=== PATIENT | male | born 1975 | race Caucasian/White ===

== ENCOUNTER → 2018-02-15 | Outpatient (CLI) | payer OTHER ==
[~2018-02-15] MED LIST: GABA-843 PO; MULT1TAB10 PO; NAPR-885 PO
--- NOTE | 2018-02-16 05:23 | REP ---
Clinical: Left shoulder pain . Technique: Internal rotation, external rotation, and Y view. Findings: No acute fracture or dislocation. The acromioclavicular and glenohumeral joints are intact. No periarticular calcifications or degenerative changes are appreciated. Sub acromial space is normal. Surrounding soft tissues are unremarkable. Impression: Normal left shoulder radiographs. Electronically Signed by Julio Cesar Jane MD 02/16/2018 05:16 A
== END ==
LOC: M ADAMS 08:36
PROVIDERS: ATTEND Physician Assistant Medical
DX: M25.512 Pain in left shoulder (principal)

== ENCOUNTER → 2018-04-25 | Outpatient (REF) | payer OTHER ==
[2018-04-25 18:51] LABS: APPEARANCE, URINE CLEAR (CLEAR); BACTERIA, URINE AUTO NEGATIVE (NEGATIVE); BILIRUBIN, URINE AUTO NEGATIVE (NEGATIVE); BLOOD, URINE BLOOD NEGATIVE (NEGATIVE); COLOR, URINE YELLOW (YELLOW); GLUCOSE, URINE (UA) AUTO NEGATIVE (NEGATIVE); KETONE, URINE AUTO NEGATIVE (NEGATIVE); LEUKOCYTE ESTERASE, URINE AUTO NEGATIVE (NEGATIVE); MUCUS, URINE SMALL (NEGATIVE); NITRITE, URINE AUTO NEGATIVE (NEGATIVE); PROTEIN, URINE AUTO NEGATIVE (NEGATIVE); RBC, URINE AUTO 0 /HPF (0-3); SPECIFIC GRAVITY URINE AUTO 1.023 (1.002-1.035); SQUAMOUS EPITHELIAL CELL UR AU 0 /HPF (0-6); UROBILINOGEN, URINE AUTO 0.2 mg/dL (0.0-2.0); WBC, URINE AUTO 0 /HPF (0-3)
== END ==
LOC: M SMT 17:18
PROVIDERS: ATTEND Nurse Practitioner Family
DX: R35.1 Nocturia (principal)
CPT/HCPCS: 51798; 81001; 87086; G0463

== ENCOUNTER → 2018-10-24 | Outpatient (REF) | payer OTHER ==
[2018-10-24 14:14] LABS: APPEARANCE, URINE CLEAR (CLEAR); BACTERIA, URINE AUTO NEGATIVE (NEGATIVE); BILIRUBIN, URINE AUTO NEGATIVE (NEGATIVE); BLOOD, URINE BLOOD NEGATIVE (NEGATIVE); COLOR, URINE YELLOW (YELLOW); GLUCOSE, URINE (UA) AUTO NEGATIVE (NEGATIVE); KETONE, URINE AUTO NEGATIVE (NEGATIVE); LEUKOCYTE ESTERASE, URINE AUTO NEGATIVE (NEGATIVE); MUCUS, URINE SMALL (NEGATIVE); NITRITE, URINE AUTO NEGATIVE (NEGATIVE); PROTEIN, URINE AUTO NEGATIVE (NEGATIVE); RBC, URINE AUTO 0 /HPF (0-3); SPECIFIC GRAVITY URINE AUTO 1.016 (1.002-1.035); SQUAMOUS EPITHELIAL CELL UR AU 0 /HPF (0-6); UROBILINOGEN, URINE AUTO 0.2 mg/dL (0.0-2.0); WBC, URINE AUTO 0 /HPF (0-3)
== END ==
LOC: M SMT 13:05
PROVIDERS: ATTEND Nurse Practitioner Family
DX: R39.9 Unspecified symptoms and signs involving the genitourinary system (principal)
CPT/HCPCS: 81001; 87086; G0463

== ENCOUNTER → 2019-01-02 | Outpatient (REF) | payer OTHER ==
[2019-01-02 14:04] LABS: APPEARANCE, URINE CLEAR (CLEAR); BACTERIA, URINE AUTO NEGATIVE (NEGATIVE); BILIRUBIN, URINE AUTO NEGATIVE (NEGATIVE); BLOOD, URINE BLOOD NEGATIVE (NEGATIVE); COLOR, URINE YELLOW (YELLOW); GLUCOSE, URINE (UA) AUTO NEGATIVE (NEGATIVE); KETONE, URINE AUTO NEGATIVE (NEGATIVE); LEUKOCYTE ESTERASE, URINE AUTO NEGATIVE (NEGATIVE); MUCUS, URINE SMALL (NEGATIVE); NITRITE, URINE AUTO NEGATIVE (NEGATIVE); PROTEIN, URINE AUTO NEGATIVE (NEGATIVE); RBC, URINE AUTO 0 /HPF (0-3); SPECIFIC GRAVITY URINE AUTO 1.012 (1.002-1.035); SQUAMOUS EPITHELIAL CELL UR AU 0 /HPF (0-6); UROBILINOGEN, URINE AUTO 0.2 mg/dL (0.0-2.0); WBC, URINE AUTO 0 /HPF (0-3)
== END ==
LOC: M SMT 13:19
PROVIDERS: ATTEND Nurse Practitioner Family
DX: N41.9 Inflammatory disease of prostate, unspecified (principal)
CPT/HCPCS: 51798; 81001; 87086; G0463

== ENCOUNTER → 2020-01-06 | Outpatient (CLI) | payer OTHER ==
[~2020-01-06] MED LIST changes: +CIAL5TAB PO; +DITR1TAB PO; +FINA5TAB2 PO
== END ==
LOC: M LABSMTC 09:09
PROVIDERS: ATTEND Anesthesiology
DX: Z01.812 Encounter for preprocedural laboratory examination (principal); Z20.828 Contact with and (suspected) exposure to other viral communicable diseases

== ENCOUNTER 2020-01-09 12:27 | Day surgery (SDC) | payer OTHER ==
[~2020-01-09] VITALS: Ht 185.4 cm; Wt 107.5 kg
[~2020-01-09 12:27] MED LIST changes: +LR 1,000 ML IV ONE; +MIDAZOLAM INJ 2MG/2ML VIAL (J2250 PER 1MG) IV PRN; +ceFAZolin SOD 2 GM in IV 1 EA IV ONE; +fentaNYL 100 MCG/2 ML INJECTION (J3010) IV PRN
[2020-01-09] MEDS ORDERED: ROCURONIUM BROMIDE 50 MG/5 ML VIAL As Ordered ONE (13:14)
[2020-01-09] MEDS ORDERED: LIDOCAINE 2% 100MG/5ML SDV (FOR ANES.) As Ordered ONE (13:14)
[2020-01-09] MEDS ORDERED: fentaNYL 100 MCG/2 ML INJECTION (J3010) As Ordered ONE ×2 (13:14→14:02)
[2020-01-09] MEDS ORDERED: propofoL 200 MG/20 ML VIAL As Ordered ONE ×2 (13:14→15:29)
[2020-01-09] MEDS ORDERED: ROPIvacaine 0.5% 30ML INJECTION (J2795 PER 1MG) XX ONE (14:00)
[2020-01-09] MEDS ORDERED: EPINEPHrine INJ 1 MG/ML 1ML AMP XX ONE (14:00)
[2020-01-09] MEDS ORDERED: MIDAZOLAM INJ 2MG/2ML VIAL (J2250 PER 1MG) As Ordered ONE (14:02)
[2020-01-09] MEDS ORDERED: dexameTHASONE 4 MG/ML 1ML VIAL (J1100 PER 1MG) As Ordered ONE ×2 (14:20→15:43)
[2020-01-09] MEDS ORDERED: dexameTHASONE 10MG/1ML VIAL PRES.FREE (J1100 PER 1MG) As Ordered ONE (14:21)
[2020-01-09] MEDS ORDERED: dexameTHASONE 10MG/1ML VIAL PRES.FREE (J1100 PER 1MG) XX ONE (14:30)
[2020-01-09] MEDS ORDERED: EPINEPHrine 1MG/ML INJ 30ML MD-VIAL As Ordered ONE (15:01)
[2020-01-09] MEDS ORDERED: ONDANSETRON 4MG/2ML VIAL As Ordered ONE (15:43)
[2020-01-09] MEDS ORDERED: PHENYLephrine HCL 500 MCG/5 ML (100MCG/ML) SYRINGE (J2370) As Ordered ONE (16:11)
[2020-01-09] MEDS ORDERED: oxyCODONE 5MG TAB PO PRN ×2 (18:30→20:00)
[2020-01-09] MEDS ORDERED: LR 1,000 ML IV SCH ×2 (18:30)
[2020-01-09] MEDS ORDERED: fentaNYL 100 MCG/2 ML INJECTION (J3010) IV PRN (18:30)
[2020-01-09] MEDS ORDERED: ONDANSETRON 4MG/2ML VIAL IV PRN (18:30)
[2020-01-09] MEDS ORDERED: METOCLOPRAMIDE INJ 10MG/2ML VIAL (J2765 PER 1) IV ONE (19:45)
[2020-01-09 20:15] VITALS: BP 120/77
--- NOTE | 2020-01-10 08:30 | RO ---
OPERATIVE NOTE DATE OF OPERATION: 01/09/2020 PREOPERATIVE DIAGNOSES: 1. Left shoulder instability. 2. Left shoulder labral tear. 3. Left shoulder glenohumeral arthritis. POSTOPERATIVE DIAGNOSES: 1. Left shoulder anterior instability. 2. Left shoulder 360 degree labral tear including type 4 superior labral tear. 3. Left shoulder glenoid chondromalacia. 4. Left shoulder Hill-Sachs. PROCEDURES: 1. Left shoulder arthroscopic anterior labral repair (Bankart procedure). 2. Left shoulder open subpectoral biceps tenodesis. 3. Left shoulder arthroscopic labral debridement and chondroplasty. SURGEON: Arjun Hawkins MD INSTRUMENT TECH: Edgardo Uribe PA-C ANESTHESIA: General with preoperative nerve block. IV FLUIDS: Lactated Ringer's. ESTIMATED BLOOD LOSS: 5 mL IMPLANTS: Arthrex 3 mm SutureTak anchor x1 and Arthrex 3 mm PushLock anchor with labral tape x3 and Arthrex proximal biceps button x1. CLOSURE: Monocryl and nylon. PROCEDURE: The patient identified in the preoperative holding area. The left shoulder was marked. He denied symptoms of posterior instability. He had an interscalene nerve block by anesthesia. He was brought to the operating room and placed supine on a well-padded OR table on a flowers bag. General anesthesia was induced. Examination under anesthesia revealed 180 degrees of forward flexion, 90 of external rotation, grade 2+ anterior load and shift, grade 1 posterior load and shift. He was placed into the right side down lateral decubitus position with an axillary roll and all bony prominences were well padded, bilateral SCDs for DVT prophylaxis. The left arm was placed into the Arthrex STaR Sleeve lateral decubitus traction nation with 10 pounds of traction. The left shoulder was prepped and draped in the normal sterile fashion with ChloraPrep. He received appropriate IV antibiotics within 1 hour of incision. Time out was performed per hospital protocol. Edgardo Uribe was present for the entire procedure and participated in all essential portions of the procedure. This included the patient positioning, draping, holding the arthroscope, and most importantly providing axial traction and distraction to the joint to assist with suture passage and drilling. He also assisted with retrieving sutures, performed the wound closure, applied the dressing and brace. He also held retractors during the biceps tenodesis and assisted with whip stitching the tendon. The left shoulder was insufflated with lactated Ringer's. A standard posterior glenoid portal was made with an 11-blade. A 30 degree arthroscope was introduced into the joint. A diagnostic arthroscopy was carried out. The patient had an area of grade 2 chondromalacia in the anterior glenoid. Humeral head was in good condition other than a very large but shallow Hill-Sachs lesion in the posterior humeral head. Rotator cuff was in excellent condition. Subscapularis was intact without tearing. Examination of the labrum revealed a 360 degree labral tear with type 4 SLAP tear. The split in the superior labrum extended out into the long head of the biceps. There was tearing of the entire anterior labrum and capsule with no bumper and the tissue had scarred in medially. The humeral head was noted to be subluxated anteriorly and inferiorly. There was extensive superior and posterior labral tearing with meniscoid variant. An anterior working portal was established through the rotator interval to give the appropriate angle for drilling into the glenoid. Purple Arthrex cannula placed. Extensive 360 degree labral debridement was then carried out with a shaver. Chondroplasty to the anterior glenoid with shaver. An accessory superolateral portal was also established through the rotator interval. Meniscal biter was used to release the long head of the biceps off the superior labrum. The stump was debrided with the shaver. We then proceeded with open biceps tenodesis. An incision was made with a 15-blade just lateral to the axilla and dissection down with Metzenbaum scissors to the biceps fascia. [employer] retractors were used to retract the pectoralis major and then the long head of the biceps was identified and dissected out with right angle clamp. The Arthrex proximal biceps tenodesis kit was opened and running locking whipstitch placed with FiberLoop. Excess tendon trimmed and discarded. Sutures loaded through the button per routine. Unicortical drill hole was made with spade tip drill bit and then irrigation used to remove bony debris. The button was passed through the drill hole on the grade school teacher; sutures were toggled to flip the button and nicely restored the resting tension. Curved free needle was used to pass one limb of suture back through the biceps and knots tied by hand to lock the construct in place. The incision was re-irrigated and then closed in layered fashion with 2-0 Vicryl, 2-0 Vicryl and running Monocryl. At the end of the case Steri-Strips were placed. The arthroscope was placed back into the joint and then we proceeded with the arthroscopic labral repair. The Hook radiofrequency cautery was used to develop the plane between the anterior inferior glenoid and labrum. Labral elevators were then used to subperiosteally dissect labrum and capsule off the glenoid neck to mobilize the tissue. CrabClaw grasper was used to grab the anterior capsule and labrum and place that tissue on tension and then the radiofrequency cautery again used to further release the tissue off the anterior glenoid neck. The tissue is now sufficiently mobilized. The rasp was then used to create a fresh bleeding surface along the anterior glenoid neck. I then drilled and placed a 3 mm Arthrex SutureTak anchor at the 6:30 position. The 90 degree suture lasso was used to shuttle the FiberWire sutures through the anterior inferior labrum taking care to grasp the anterior band of the inferior glenohumeral ligament, that was passed in horizontal mattress fashion. Posterior lever push was then performed and sutures were tied using alternating half-hitch technique with knot pusher and this nicely restored the anterior inferior bumper. Sutures were cut. I then proceeded with three additional anchors. These were all Arthrex 2.9 mm BioComposite PushLock anchors and labral tape. The lasso was used to shuttle labral tape through the capsule and labrum in a superior shift type fashion. The additional three anchors were placed at 7:30, 8:30 and 9:30. This completed the four anchor anterior labral repair. At this point the superior labrum was highly unstable and the remnant superior labrum was debrided with the shaver. I considered passing 2-0 PDS sutures to tie that tissue together but it was such poor quality I felt that it was likely to fail and then cause mechanical symptoms in the future. The meniscal biter was used through the anterior portal to debride the posterior labrum and then that was completed with the shaver. The arthroscope was then placed into the anterior superior portal to give direct view at the 6 o'clock position and the humeral head was perfectly centered on the glenoid. No indication for posterior labral repair. The shoulder was irrigated and drained, the portals closed with nylon suture. Bulky sterile dressing was applied. He was carefully placed into the ARC 2 sling and then extubated and transferred to the PACU in stable condition.
== END 2020-01-09 20:30 | disposition home or self-care (01) ==
LOC: M SDC 12:27
PROVIDERS: ATTEND Orthopaedic Surgery
DX: S43.432A Superior glenoid labrum lesion of left shoulder, initial encounter (principal); M25.312 Other instability, left shoulder; M19.012 Primary osteoarthritis, left shoulder; M94.212 Chondromalacia, left shoulder; M75.92 Shoulder lesion, unspecified, left shoulder; N40.0 Benign prostatic hyperplasia without lower urinary tract symptoms; Z79.899 Other long term (current) drug therapy; Y92.89 Other specified places as the place of occurrence of the external cause; Y93.9 Activity, unspecified; Y99.9 Unspecified external cause status
CPT/HCPCS: 23430; 29806; 29822; 64415; 88304; C1713; J0690; J1100; J2250; J2370; J2405; J2765; J3010

== ENCOUNTER → 2021-01-27 | Outpatient (CLI) | payer OTHER ==
[~2021-01-27] MED LIST changes: +GABA-282 PO; -GABA-843 PO; +GASTROGRAFIN SOLUTION 30ML (Q9963) ONE; +ISOVUE-370 76% 100ML VIAL ONE; -LR 1,000 ML IV ONE; -MIDAZOLAM INJ 2MG/2ML VIAL (J2250 PER 1MG) IV PRN; -ceFAZolin SOD 2 GM in IV 1 EA IV ONE; -fentaNYL 100 MCG/2 ML INJECTION (J3010) IV PRN
--- NOTE | 2021-01-27 13:19 | REP ---
INDICATION: CHRONIC LLQ ABD PAIN. COMPARISON: None TECHNIQUE: Axial contrast-enhanced images from the lung bases to the pubic symphysis using oral and 100 cc Isovue 370 intravenous contrast material. Delayed images of the abdomen along with coronal and sagittal reformations obtained. This CT examination was performed using the following dose reduction techniques: Automated exposure control, adjustment of mA and/or kv according to the patient's size, and the use of iterative reconstruction technique. FINDINGS: Liver, spleen, pancreas, gallbladder, bilateral adrenal glands and kidneys are normal. The enteric system including stomach, small, and large bowel appears normal. No evidence for obstruction or acute inflammatory process. Normal terminal ileum and appendix are identified in the right lower quadrant. Pelvis demonstrates normal bladder and age-appropriate prostate/seminal vesicles. Visualized portions of the scrotum suggest bilateral varicoceles (right greater than left). No ascites. No free air. No intraperitoneal or retroperitoneal adenopathy. Abdominal aorta and vasculature appear normal. Musculoskeletal structures are intact and without acute osseous abnormality. IMPRESSION: No acute abdominopelvic pathology appreciated. <Electronically signed by Julio Cesar Jane > 01/27/21 [id number]
== END ==
LOC: M PLAIMG 09:59
PROVIDERS: ATTEND Family Medicine
DX: R10.32 Left lower quadrant pain (principal)
CPT/HCPCS: 74177; Q9963; Q9967

== ENCOUNTER → 2021-04-08 | Outpatient (CLI) | payer OTHER ==
[~2021-04-08] MED LIST changes: -GASTROGRAFIN SOLUTION 30ML (Q9963) ONE; -ISOVUE-370 76% 100ML VIAL ONE
== END ==
LOC: M WHC 07:05 → M RAD 07:05
PROVIDERS: ATTEND Specialist
DX: N50.89 Other specified disorders of the male genital organs (principal)

== ENCOUNTER 2023-03-04 06:48 | Day surgery (SDC) | payer OTHER ==
[~2023-03-04] VITALS: Ht 185.4 cm; Wt 117.1 kg
[~2023-03-04 06:48] MED LIST changes: +NS 1,000 ML IV ONE
[2023-03-04] MEDS ORDERED: propofoL 200 MG/20 ML VIAL As Ordered ONE (07:15)
[2023-03-04 08:57] VITALS: BP 135/67; O2SAT 99
== END 2023-03-04 09:02 | disposition home or self-care (01) ==
LOC: M OPP 06:48
PROVIDERS: ATTEND Internal Medicine Gastroenterology
DX: Z12.11 Encounter for screening for malignant neoplasm of colon (principal); K64.4 Residual hemorrhoidal skin tags; K64.8 Other hemorrhoids